=== PATIENT | female | born 1985 | race Caucasian/White ===

== ENCOUNTER 2020-11-18 15:10 | Emergency (ER) | payer MEDICAID, OTHER ==
[~2020-11-18] VITALS: Ht 172.7 cm; Wt 61.2 kg
[2020-11-18 15:10] VITALS: BP_SYST 122
[2020-11-18] MEDS ORDERED: HYDR-3110 PO (16:33)
[2020-11-18] MEDS ORDERED: IBUP-1969 PO (16:33)
[2020-11-18 16:45] VITALS: BP_SYST 118
== END 2020-11-18 16:45 | disposition home or self-care (01) ==
LOC: SED 15:10
DX: S40.012A Contusion of left shoulder, initial encounter (principal); Z88.6 Allergy status to analgesic agent; W18.39XA Other fall on same level, initial encounter; Y93.89 Activity, other specified; Y92.89 Other specified places as the place of occurrence of the external cause; Y99.8 Other external cause status
CPT/HCPCS: 73030; 81025; 99283